=== PATIENT | female | born 2000 | race Hispanic/Latino ===

== ENCOUNTER 2022-10-11 05:29 | Emergency (ER) | payer OTHER ==
[~2022-10-11] VITALS: Ht 149.9 cm; Wt 54.4 kg
[2022-10-11] MEDS ORDERED: KETOROLAC TROMETHAMINE 30 MG/ML VIAL IV STA (06:20)
[2022-10-11] MEDS ORDERED: ONDANSETRON HCL INJ 2MG/ML 2ML 2 MG/ML VIAL IV STA (06:22)
[2022-10-11 06:24] LABS: BASOPHILS % 0.2 % (0.0-1.0); EOSINOPHILS % 0.1 % (0.0-6.0); HEMATOCRIT 37.2 % (34.2-44.1); HEMOGLOBIN 11.3 g/dL (12.0-16.0); LYMPHOCYTES # (AUTO) 0.7 (1.0-3.2); LYMPHOCYTES % 6.5 % (18.0-39.1); MEAN CORPUSCULAR HEMOGLOBIN 31.6 pg (28-32); MEAN CORPUSCULAR HGB CONC 30.4 g/dL (31-35); MEAN CORPUSCULAR VOLUME 103.9 fL (81-99); MONOCYTES # (AUTO) 0.5 (0.2-0.8); NEUTROPHILS # (AUTO) 8.8 (2.1-6.9); NEUTROPHILS % 87.8 % (38.7-80.0); PLATELET COUNT 323 x10e3/uL (140-360); RED BLOOD COUNT 3.58 x10e6/uL (3.6-5.1)
[2022-10-11] MEDS ORDERED: LACTATED RINGER'S 1,000 ML INJ ONE (06:30)
[2022-10-11] MEDS ORDERED: Morphine 4mg INJECTION 4 MG/ML INJ IV ONE (06:30)
[2022-10-11] MEDS ORDERED: SODIUM CHLORIDE 0.9% 1000ML 1,000 ML ONE (06:39)
[2022-10-11] MEDS ORDERED: SODIUM CHLORIDE 0.9% 1000ML 1,000 ML IV ONE (06:45)
[2022-10-11 06:47] LABS: ALBUMIN 3.9 g/dL (3.5-5.0); ANION GAP 18.3 mmol/L (8-16); CALCIUM 8.9 mg/dL (8.4-10.2); CREATININE, SERUM 0.69 mg/dL (0.57-1.11); POTASSIUM 5.3 mmol/L (3.5-5.1)
[2022-10-11] MEDS ORDERED: IOPAMIDOL 370 MG/ML 100 ML INFUS..BTL INJ ONE (07:08)
[2022-10-11] MEDS ORDERED: CEFDINIR 300 MG CAP PO STA (08:32)
[2022-10-11] MEDS ORDERED: HYDROCODONE/APAP 5MG-325MG TAB PO ONE (08:45)
[2022-10-11] MEDS ORDERED: CEFDINIR300 MG PO (08:56)
[2022-10-11] MEDS ORDERED: HYDROCODON-ACE1 EA11 PO (08:56)
[2022-10-11 09:13] VITALS: BP 105/83
== END 2022-10-11 09:26 | disposition home or self-care (01) ==
LOC: ER 06:05
DX: T81.89XA Other complications of procedures, not elsewhere classified, initial encounter (principal); N64.4 Mastodynia; J90 Pleural effusion, not elsewhere classified; N63.0 Unspecified lump in unspecified breast; Y83.4 Other reconstructive surgery as the cause of abnormal reaction of the patient, or of later complication, without mention of misadventure at the time of the procedure
CPT/HCPCS: 36415; 71260; 80053; 84702; 85025; 93005; 99284; J1885; J2270; J2405; J7030; Q9967